=== PATIENT | male | born 1965 | race African-American/Black ===

== ENCOUNTER 2019-09-11 23:53 | Inpatient (IN) | payer MEDICARE, OTHER ==
[~2019-09-11] VITALS: Ht 182.9 cm; Wt 133.8 kg
--- NOTE | 2019-09-12 00:05 | NUR ---
PT TRANSPORTED TO AND ADMITTED TO [facility]HU VIA [facility] BY EMS AND ER HORTICULTURAL MANAGER NAD KEPT CALM AND COMFORTABLE Belongs List completed
--- NOTE | 2019-09-12 00:12 | NUR ---
Patient current not taking any medications at home per report from [facility] RN
--- NOTE | 2019-09-12 00:12 | NUR ---
Pt. admitted to MHU , under care of Dr. Renner/Salvatore. Report to Evelyn BURDICK Belongs List completed
--- NOTE | 2019-09-12 00:30 | NUR ---
Admission Note: 54 y.o. male brought to MHU from ER via gurney accompanied by ER staff. Pt admitted on a 5150 for DTS under the care of Dr Renner and Dr Singh with a dx of MDD. According to the 5150, Pt was expressing suicidal thoughts with a plan to run into tyraffic. Pt has attempted suicide before, and cut his wrists recently. Upon admission to the unit, a laceration with 5 sutures is present to his (L) wrist. Pt VS stable, denies pain, and in no apparent physical distress. Pt appears to reflect what is written on the Hold. Upon face to face evaluation, Pt is unkempt and disheveled, he is A+Ox3, and states he is here Because I was feeling suicidal and wanted to throw myself in front of a car." Pt stated multiple strassors as the reaason for his suicidal feelings. Pt is homeless, has little social support, no no close family. Pt is hyperverbal with pressured speech, and is scattered and tangential in thought process. Pt Presented as sad, despondent, and depressed. Affect is superficially bright, mood is somehat manic and irritable. Pt states he has has at least "200 psych admissions" since he was 17, and has been in restraints multiple times for aggressive behavior. Pt reports multpile stints in snf for various offenses, none violent according to the Pt. Pt denies AH/VH/HI, and agrees to verbally contract for safety while in the hospital. Pt agrees to seek staff if feeling suicidal or self injurious. Pt was cooperative with admission process and signed paperwork. CFS inside the hospital, unreliable for safety outside the hospital at this time. Pt denies an access to firearms, reports he smokes 1.5 packs of cigarettes per day and drinks one pint of vodka daily. Reports intermittent crach use, last use yesterday. Skin assessment completed-(L) wrist laceration with 5 sutures present, (B) foot discoloration and peeling, LLE scarring. Pt reports medical h/o SAD, MDD, and HTN, and allergy to Cipro. Dr Renner and Dr Singh notified of admission, home meds to be reconciled, orders received. Pt belongings inventoried, contraband placed in unit locker. Patient Rights handbook and Advisement and Pt rights handbook given, unit rules explained, Pt verbalized understanding. Pt oriented to the unit, the phone, the restrooms, and his room. Q 15 minute rounding initiated for safety.
[2019-09-12] MEDS ORDERED: MAG HYDROX/AL HYDROX/SIMETH 30 ML LIQUID UDC PO PRN (00:45)
[2019-09-12] MEDS ORDERED: TEMAZEPAM 7.5 MG CAPSULE PO PRN (00:45)
[2019-09-12] MEDS ORDERED: MAGNESIUM HYDROXIDE 30 ML LIQUID UDC PO PRN (00:45)
[2019-09-12] MEDS ORDERED: BENA40TA67 PO (01:12)
[2019-09-12] MEDS ORDERED: LURA80TA PO (01:12)
[2019-09-12] MEDS ORDERED: DIVA500T2 PO (01:12)
[2019-09-12] MEDS ORDERED: AMLO5TAB4 PO (01:12)
[2019-09-12] MEDS ORDERED: DULO30CA2 PO (01:12)
[2019-09-12 04:57] VITALS: BP 148/85
--- NOTE | 2019-09-12 06:46 | NUR ---
Zhane/Dr Conti paged regarding medication reconciliation.
[2019-09-12 07:09] LABS: BASOPHILS # (AUTO) 0.1 K/uL (0.0-8.0); BASOPHILS % (AUTO) 1.1 % (0.0-2.0); EOSINOPHILS # (AUTO) 0.4 K/uL (0.0-0.7); EOSINOPHILS % (AUTO) 5.9 % (0.0-7.0); HEMATOCRIT 38.2 % (36.7-47.1); HEMOGLOBIN 12.3 g/dL (12.5-16.3); LYMPHOCYTES # (AUTO) 1.8 K/uL (20.0-40.0); LYMPHOCYTES % (AUTO) 27.3 % (20.5-51.5); MEAN CORPUSCULAR HEMOGLOBIN 30.1 uug (23.8-33.4); MEAN CORPUSCULAR HGB CONC 32 g/dL (32.5-36.3); MEAN CORPUSCULAR VOLUME 93.8 fL (73.0-96.2); MONOCYTES # (AUTO) 0.5 K/uL (2.0-10.0); MONOCYTES % (AUTO) 7.1 % (0.0-11.0); NEUTROPHILS # (AUTO) 3.8 K/uL (1.8-8.9); NEUTROPHILS % (AUTO) 58.6 % (38.5-71.5); PLATELET COUNT (AUTO) 222 K/uL (152-348); RED BLOOD CELL COUNT(AUTO) 4.07 MIL/uL (4.06-5.63); WHITE BLOOD COUNT (AUTO) 6.5 K/uL (3.6-10.2)
[2019-09-12 07:30] VITALS: BP 134/100
[2019-09-12 07:35] LABS: BILIRUBIN,TOTAL 0.1 mg/dL (0.2-1.0); CREATININE 1.2 mg/dL (0.6-1.3); POTASSIUM 4.5 mmol/L (3.5-5.1); TOTAL PROTEIN, SERUM 7.2 g/dL (6.4-8.2)
[2019-09-12] MEDS: DULOXETINE 30 MG CAPSULE.DR PO SCH (09:52)
[2019-09-12] MEDS: DIVALPROEX 250 MG TABLET.DR PO SCH ×2 (09:52→20:56)
[2019-09-12] MEDS: NICOTINE 21 MG/24HR PATCH TD SCH (09:52)
--- NOTE | 2019-09-12 12:10 | NUR ---
Substance Abuse Intervention: Patient was provided with a brief substance abuse intervention and referred to [facility] , and [facility] .
[2019-09-12] MEDS: LISINOPRIL 20 MG TABLET PO SCH (12:27)
--- NOTE | 2019-09-12 12:50 | NUR ---
Initial Discharge Plan: Patient is currently homeless and is seeking help with placement. Patient does not have any supportive contacts at this time. Patient has agreed to a longterm placement upon discharge. Coil Cleaner will continue to work with patient and MD to ensure a safe and proper discharge plan.
--- NOTE | 2019-09-12 13:19 | NUR ---
Family Contact: Fire Alarm Dispatcher called Josie Bautista ([phone]) to collect collateral information regarding the patient. Josie stated that they have known each other for years as friends, and she speaks to pt on and off, but is unable to help in any way. production manufacturing worker left a voicemail for [facility] ([phone]) which was listed as a contact and waiting for call back.
[2019-09-12 16:00] VITALS: BP 153/87
--- NOTE | 2019-09-12 17:01 | NUR ---
Gps/Cashier Manager- Had been in and out of his group therapy, conversant, somewhat needy , making needs known to the staff.Left wrist skin lacerations w/ sutures , was dc'd this am, as ordered by Dr Singh .Pt. tolerated well/
[2019-09-12 20:00] VITALS: BP 118/65
--- NOTE | 2019-09-12 20:00 | NUR ---
Patient received into care laying in bed, resting comfortably. Patient has no complaints of pain or discomfort at this time. Patient states he has no SI and has contracted for safety with this nurse. All safety and fall precaution measures are in place. Will continue to monitor.
[2019-09-12] MEDS: ARIPIPRAZOLE 10 MG TABLET PO SCH (20:56)
[2019-09-12] MEDS ORDERED: ARIPIPRAZOLE 5 MG TABLET PO SCH (21:00)
[2019-09-13] MEDS: LORAZEPAM 1 MG TABLET PO PRN ×2 (06:55→17:10)
[2019-09-13 07:30] VITALS: BP 149/96
[2019-09-13] MEDS: DULOXETINE 30 MG CAPSULE.DR PO SCH (08:17)
[2019-09-13] MEDS: NICOTINE 21 MG/24HR PATCH TD SCH (08:17)
[2019-09-13] MEDS: DIVALPROEX 250 MG TABLET.DR PO SCH ×2 (08:17→20:15)
[2019-09-13] MEDS: AMLODIPINE 5 MG TABLET PO SCH (08:18)
[2019-09-13] MEDS: LISINOPRIL 20 MG TABLET PO SCH (08:19)
--- NOTE | 2019-09-13 11:49 | NUR ---
Firearms Report (DOJ): Analog Device Designer completed and submitted a DP[employer] firearms report for 5250 danger to himself certification. A copy of report has been placed in patient chart.
--- NOTE | 2019-09-13 14:18 | NUR ---
Individual therapy note: Voicer met with patient today and provided brief supportive counseling and emotional counseling. Patient shared his concerns about his financials and social worker psychiatric helped patient find a few resources regarding his EBT card and previous facilities pt has been to, as well as getting in touch with his java support engineer.
--- NOTE | 2019-09-13 14:25 | NUR ---
Discharge Planning: Director Of Architecture faxed patient's referral packet to ([phone]), [facility] ([phone]), [facility] ([phone]) and [facility] ([phone]) attention to [facility] ([phone]) however after reviewing patient's eligibility, patient has no medicare days to cover placement.
--- NOTE | 2019-09-13 14:31 | NUR ---
WOUND CARE CONSULT: PT REFUSED FULL SKIN ASSESSMENT BUT ALLOWED ASSESSMENT OF LEFT WRIST WHICH IS HEALED. SCAR NOTED. WILL SEE PRN. CURRENT YOVANI SCORE IS 21.
[2019-09-13 15:57] VITALS: BP 147/85
[2019-09-13] MEDS: ARIPIPRAZOLE 10 MG TABLET PO SCH (20:15)
[2019-09-13 20:20] VITALS: BP 129/80
--- NOTE | 2019-09-14 01:00 | NUR ---
GPS: Pt.woke up went to the nurses station to ask for 2 juices. Pt.was just given snacks/juices much earlier. Noted unopened juices still by bedside table. Bottled water was offered instead by business operations coordinator/charge nurse when pt.instead knocked water bottle on to the floor in disgust then went back to his room cursing. Denied needing a "PRN" at this time. Will monitor behavior for further escalation.
--- NOTE | 2019-09-14 01:10 | NUR ---
GPS: Upon rounds noted pt.to be snoring/sleeping already. Will continue to monitor.
[2019-09-14 07:30] VITALS: BP 150/88
[2019-09-14] MEDS: LORAZEPAM 1 MG TABLET PO PRN (08:05)
[2019-09-14] MEDS: AMLODIPINE 5 MG TABLET PO SCH (08:14)
[2019-09-14] MEDS: DIVALPROEX 250 MG TABLET.DR PO SCH ×2 (08:14→20:09)
[2019-09-14] MEDS: DULOXETINE 30 MG CAPSULE.DR PO SCH (08:14)
[2019-09-14] MEDS: NICOTINE 21 MG/24HR PATCH TD SCH (08:14)
[2019-09-14] MEDS: LISINOPRIL 20 MG TABLET PO SCH (08:15)
[2019-09-14 16:00] VITALS: BP 151/96
[2019-09-14] MEDS: ACETAMINOPHEN 325 MG TABLET PO PRN (16:39)
[2019-09-14] MEDS: ARIPIPRAZOLE 10 MG TABLET PO SCH (20:09)
[2019-09-14 20:30] VITALS: BP 115/57
[2019-09-15] MEDS: LORAZEPAM 1 MG TABLET PO PRN (08:17)
[2019-09-15] MEDS: DIVALPROEX 250 MG TABLET.DR PO SCH ×2 (08:17→20:02)
[2019-09-15] MEDS: DULOXETINE 30 MG CAPSULE.DR PO SCH (08:17)
[2019-09-15] MEDS: LISINOPRIL 20 MG TABLET PO SCH (08:18)
[2019-09-15] MEDS: NICOTINE 21 MG/24HR PATCH TD SCH (08:18)
[2019-09-15] MEDS: AMLODIPINE 10 MG TABLET PO SCH (08:18)
[2019-09-15] MEDS: ACETAMINOPHEN 325 MG TABLET PO PRN (08:25)
[2019-09-15 08:41] VITALS: BP 147/89
[2019-09-15] MEDS ORDERED: AMLODIPINE 5 MG TABLET PO SCH (09:00)
[2019-09-15] MEDS: NEOMY/BACITRAC/POLYMI OINT 28.35 GM TUBE TOP SCH ×2 (13:27→16:33)
[2019-09-15 16:28] VITALS: BP 130/85
[2019-09-15 20:00] VITALS: BP 124/55
[2019-09-15] MEDS: ARIPIPRAZOLE 10 MG TABLET PO SCH (20:03)
[2019-09-16 07:30] VITALS: BP 140/83
[2019-09-16] MEDS: LORAZEPAM 1 MG TABLET PO PRN ×2 (08:08→17:23)
[2019-09-16] MEDS: ACETAMINOPHEN 325 MG TABLET PO PRN ×2 (08:23→17:23)
[2019-09-16] MEDS: NICOTINE 21 MG/24HR PATCH TD SCH (08:23)
[2019-09-16] MEDS: DIVALPROEX 250 MG TABLET.DR PO SCH ×2 (08:24→20:02)
[2019-09-16] MEDS: DULOXETINE 30 MG CAPSULE.DR PO SCH (08:24)
[2019-09-16] MEDS: LISINOPRIL 20 MG TABLET PO SCH (08:24)
[2019-09-16] MEDS: AMLODIPINE 10 MG TABLET PO SCH (08:24)
[2019-09-16] MEDS: NEOMY/BACITRAC/POLYMI OINT 28.35 GM TUBE TOP SCH ×2 (08:25→16:27)
[2019-09-16 15:26] VITALS: BP 144/88
[2019-09-16 19:45] VITALS: BP 124/76
[2019-09-16] MEDS: ARIPIPRAZOLE 10 MG TABLET PO SCH (20:02)
[2019-09-17 07:30] VITALS: BP 138/88
--- NOTE | 2019-09-17 08:48 | NUR ---
Individual Therapy Note: Die Cutting Machine Operator met with patient today for individual supportive counseling. Patient expressed many concerns regarding his placement. disposal worker informed patient that he does not have medicare covered days for [facility] placement. Die Cutting Machine Operator was able to connect the patient with the correct number to receive his Direct Express Debit Card. Die Cutting Machine Operator got in contact with the [facility] and received the patient's previous booking numbers per pt's request. SW was informed that in order for the patient to receive his police records, pt will need to email his ID card, booking numbers, and a copy of a check to pay for the pages, and it would take up to 10 business days.
[2019-09-17] MEDS: NEOMY/BACITRAC/POLYMI OINT 28.35 GM TUBE TOP SCH (09:00)
[2019-09-17] MEDS: DULOXETINE 30 MG CAPSULE.DR PO SCH (10:07)
[2019-09-17] MEDS: NICOTINE 21 MG/24HR PATCH TD SCH (10:07)
[2019-09-17] MEDS: DIVALPROEX 250 MG TABLET.DR PO SCH (10:08)
[2019-09-17] MEDS: AMLODIPINE 10 MG TABLET PO SCH (10:08)
[2019-09-17] MEDS: LISINOPRIL 20 MG TABLET PO SCH (10:09)
--- NOTE | 2019-09-17 14:19 | NUR ---
Discharge Note: Patient was released by his probable cause hearing today and will be discharged today to [facility]. Patient will be provided with a TAP card for his transportation to the meeting [address] [place] [address] pickup times at 4:30pm and 6:00pm. Patient is aware and agreeable with discharge plans. Patient denies suicidal or homicidal ideation. Patient is alert and oriented times 4 and is able to plan for self-care. Patient will be following up with his psychiatrist Dr. Doris Rueda [address] [place] [address] ([phone]) and has a follow up on October 08, 2019 as a walk in. Patient is well connected and familiar with [facility] [address] [place] [phone] ([phone]) and has been speaking with Alejandra ([phone]. [phone]) regarding his FSP Program and Housing, patient will be going in tomorrow and evaluated with intake for possible housing beginning October 02, 2019. Patient was provided with a brief substance abuse intervention and provided with the [facility] Substance Abuse Self-helpline ([facility]) ([phone]), [facility] [address] [place] [address] ([phone]), [facility] [address] [facility] [address] ([phone]). Patient was provided with the homeless alf packet, which includes a list of emergency shelters, housing resources, drop in centers, and showers/hot meals centers. This also included the Homeless Information Hotline (051)-896-4406 or 211, [employer] for [employer] , and the [facility] [phone]. Patient was also provided with outpatient mental health resources to [facility] Crisis Line , and the National Suicide Prevention Lifeline .
--- NOTE | 2019-09-17 14:49 | NUR ---
called pharmacy [facility]rige[facility] @ [phone] for . prescription
[2019-09-17 15:43] VITALS: BP 109/58
--- NOTE | 2019-09-17 15:45 | NUR ---
Discharge instructions paperwork was given to pt since he was realesed by court aware and orders to dc were obtained, SW arranged mcc for pt and also a tap car for transportation, pt is stable, denies any SI, happy to being realesed, medications was called to his pharmacy and he knows to F/U with on 10-08-19 as a walking in, no distress.
--- NOTE | 2019-09-17 16:06 | NUR ---
Social Work Note/PC Hearing Notification: plant care worker was unable to contact a family member. Patient does not have any family members.
== END 2019-09-17 16:00 | disposition home or self-care (01) | DRG 885 ==
LOC: ER 09-12 00:10 → GPS 09-12 00:34
PROVIDERS: ADMIT Psychiatry & Neurology Psychiatry; ATTEND Internal Medicine
DX: F25.9 Schizoaffective disorder, unspecified (principal); F14.10 Cocaine abuse, uncomplicated; S51.812D Laceration without foreign body of left forearm, subsequent encounter; X78.9XXD Intentional self-harm by unspecified sharp object, subsequent encounter; E66.01 Morbid (severe) obesity due to excess calories; Z68.36 Body mass index [BMI] 36.0-36.9, adult; I10 Essential (primary) hypertension; F32.9 Major depressive disorder, single episode, unspecified
CPT/HCPCS: 36415; 80164; 85025; A4663; J3490

== ENCOUNTER 2019-10-01 05:53 | Emergency (ER) | payer MEDICARE, OTHER ==
[~2019-10-01] VITALS: Ht 182.9 cm; Wt 132.4 kg
[~2019-10-01 05:53] MED LIST: AMLO5TAB4 PO; BENA40TA67 PO
[2019-10-01] MEDS ORDERED: DIVA250T4 PO (06:23)
[2019-10-01] MEDS ORDERED: DULO30CA2 PO (06:23)
[2019-10-01] MEDS ORDERED: HYDR-4354 PO (06:23)
[2019-10-01] MEDS ORDERED: LURA80TA PO (06:23)
--- NOTE | 2019-10-01 06:30 | NUR ---
Patient walked into ER c/o abdominal pain with N/V and diarrhea for 3 days.
[2019-10-01] MEDS: IV NORMAL SALINE 1000 ML BAG IV ONE (06:48)
[2019-10-01] MEDS ORDERED: HYDROMORPHONE 1 MG/1 ML DISP.SYRIN ONE (06:49)
[2019-10-01] MEDS ORDERED: ONDANSETRON 4 MG/2 ML VIAL ONE (06:50)
[2019-10-01] MEDS: ONDANSETRON 4 MG/2 ML VIAL IV ONE (06:50)
[2019-10-01] MEDS: HYDROMORPHONE 1 MG/1 ML DISP.SYRIN IV ONE (06:51)
[2019-10-01 06:52] LABS: BASOPHILS # (AUTO) 0.1 K/uL (0.0-8.0); EOSINOPHILS # (AUTO) 0.1 K/uL (0.0-0.7); EOSINOPHILS % (AUTO) 0.5 % (0.0-7.0); HEMATOCRIT 41.7 % (36.7-47.1); HEMOGLOBIN 13.6 g/dL (12.5-16.3); LYMPHOCYTES # (AUTO) 1.5 K/uL (20.0-40.0); LYMPHOCYTES % (AUTO) 15.5 % (20.5-51.5); MEAN CORPUSCULAR HGB CONC 33 g/dL (32.5-36.3); MEAN CORPUSCULAR VOLUME 91.8 fL (73.0-96.2); MONOCYTES # (AUTO) 0.5 K/uL (2.0-10.0); MONOCYTES % (AUTO) 5.4 % (0.0-11.0); NEUTROPHILS # (AUTO) 7.7 K/uL (1.8-8.9); NEUTROPHILS % (AUTO) 77.6 % (38.5-71.5); PLATELET COUNT (AUTO) 257 K/uL (152-348); RED BLOOD CELL COUNT(AUTO) 4.55 MIL/uL (4.06-5.63); WHITE BLOOD COUNT (AUTO) 9.9 K/uL (3.6-10.2)
--- NOTE | 2019-10-01 06:53 | NUR ---
Patient out of CT scan via gurny.
[2019-10-01 06:57] LABS: CREATININE 1.3 mg/dL (0.6-1.3); POTASSIUM 4.3 mmol/L (3.5-5.1)
[2019-10-01 07:03] LABS: BILIRUBIN,DIRECT 0.1 mg/dL (0.0-0.2); BILIRUBIN,TOTAL 0.3 mg/dL (0.2-1.0); TOTAL PROTEIN, SERUM 8.3 g/dL (6.4-8.2)
--- NOTE | 2019-10-01 07:28 | NUR ---
PATIENT IS AWAKE AND ALERT WITH NO NEW COMPLAINTS. STATES PAIN IS MINMAL AT THSI TIME. NO NAUSA OR VOMITING AT THIS TIME. CT DONE
--- NOTE | 2019-10-01 08:00 | NUR ---
IV removed. Catheter intact and site benign. Pressure and 4x4 gauze applied to site. No bleeding noted.
--- NOTE | 2019-10-01 08:03 | NUR ---
DC, RX (INCUDING ALL PRECAUTIONS) AND FOLLOW UP INSTRUCTIONS GIVEN AND EXPLAINED TO PATIENT WHO STATES HE UNDERSTANDS ALL INSTRUCTIONS. PATIENT DOES NOT DRIVE BUT STTAES HE HAS A RIDE. HE DENIES BEING HOMELESS, STATES HE LIVES IN [place]
[2019-10-01 09:49] LABS: *BILIRUBIN,URIN NEGATIVE (NEGATIVE); *BLOOD, URINE NEGATIVE (NEGATIVE); *CLARITY,URINE CLEAR (CLEAR); *COLOR,URINE YELLOW (YELLOW); *KETONES,URINE NEGATIVE (NEGATIVE); *UROBILINOGEN,URINE 0.2 E.U./dl (NORMAL); LEUKOCYTE ESTERASE ,URINE NEGATIVE (NEGATIVE); NITRITE, URINE NEGATIVE (NEGATIVE); UGLUCOSE NEGATIVE (NEGATIVE)
[2019-10-01 10:01] LABS: BACTERIA,URINE NONE SEEN /HPF (NONE SEEN); RBC,URINE 0-3 /HPF (0-3); SQUAMOUS EPITHELIAL CELL,UR FEW /HPF (NONE SEEN); WBC,URINE 0-3 /HPF (0-3)
== END 2019-10-01 08:25 | disposition home or self-care (01) ==
LOC: ER 06:05
DX: R10.9 Unspecified abdominal pain (principal); R11.2 Nausea with vomiting, unspecified; R19.7 Diarrhea, unspecified; F32.9 Major depressive disorder, single episode, unspecified; F17.200 Nicotine dependence, unspecified, uncomplicated; Z88.1 Allergy status to other antibiotic agents; Z79.899 Other long term (current) drug therapy
CPT/HCPCS: 36415; 71045; 74176; 80048; 80076; 81000; 81001; 83690; 84484; 85025; 87086; 93005; 96361; 96374; 96375; 99284; J1170; J2405; 70030-TC; A4663; J7030